=== PATIENT | male | born 1965 | race African-American/Black ===

== ENCOUNTER 2017-02-11 17:29 | Emergency (ER) | payer BC, MEDICAID ==
[~2017-02-11] VITALS: Ht 172.7 cm; Wt 60.0 kg
[2017-02-11] MEDS ORDERED: KETOROLAC 30MG/ML VIAL IV STA (18:06)
[2017-02-11] MEDS ORDERED: SODIUM CHLORIDE 0.9% 1,000 ML IV ONE (18:06)
[2017-02-11 18:24] VITALS: BP 138/87
[2017-02-11 18:55] LABS: BASOPHILS % 1.2 % (0.0-2.0); EOSINOPHILS % 0.1 % (0.0-5.0); HEMATOCRIT. 40.6 % (42.0-52.0); HEMOGLOBIN. 14.3 g/dL (14.0-18.0); LYMPHOCYTES % 14.1 % (20.0-50.0); MEAN CORPUSCULAR HEMOGLOBIN 35.7 pg (28.0-32.0); MEAN CORPUSCULAR VOLUME 101.6 fL (80.0-94.0); MEAN PLATELET VOLUME 8.9 fl (7.4-10.4); MONOCYTES % 7.8 % (2.0-8.0); NEUTROPHILS % 76.8 % (40.0-76.0); PLATELET 139 x1000/uL (130-400); RED CELL DISTRIBUTION WIDTH 14.7 % (11.6-14.6)
[2017-02-11 19:05] LABS: CARBON DIOXIDE 22 mEq/L (21-32); CHLORIDE 100 mEq/L (98-107); ETHANOL BLOOD < 10 mg/dL
[2017-02-11 19:14] LABS: INR 1.1
[2017-02-11] MEDS ORDERED: ONDANSETRON HCL 4MG/2ML VIAL IV STA (19:22)
[2017-02-11] MEDS ORDERED: MORPHINE SULFATE 4 MG/ML CPJ (NOT FOR IM USE) IV STA (19:22)
[2017-02-11] MEDS ORDERED: SODIUM CHLORIDE 0.9% 1,000 ML IV SCH (22:23)
[2017-02-11] MEDS ORDERED: ENOXAPARIN 40MG/0.4ML SYR SUBCUT SCH (22:30)
[2017-02-11] MEDS ORDERED: ONDANSETRON HCL 4MG/2ML VIAL IV PRN (22:30)
[2017-02-11] MEDS ORDERED: MORPHINE SULFATE 2 MG/ML CPJ (NOT FOR IM USE) IV PRN (22:30)
[2017-02-11] MEDS ORDERED: IPRATROPIUM/ALBUTEROL 0.5-3(2.5)MG/3ML NEB INH PRN (22:30)
[2017-02-11] MEDS ORDERED: MVI, ADULT NO.1 10 ML, FOLIC ACID 1 MG, THIAMINE HCL 100 MG in SODIUM CHLORIDE 0.9% 1,0... IV SCH ×4 (23:00)
[2017-02-12] MEDS ORDERED: TRAM50TA3 PO (17:35)
[2017-02-12] MEDS ORDERED: [UNRECOGNIZED DRUG - OTHER] PO (17:35)
== END 2017-02-11 21:40 | disposition left against medical advice (07) ==
LOC: ER 18:08 → CANBEDREQ 21:45
DX: K85.90 Acute pancreatitis without necrosis or infection, unspecified (principal); F41.9 Anxiety disorder, unspecified; F17.210 Nicotine dependence, cigarettes, uncomplicated; Z87.81 Personal history of (healed) traumatic fracture
CPT/HCPCS: 36415; 74176; 80053; 83036; 83690; 85025; 85610; 93005; 96361; 96374; 99285; G0482; J1885; J7030; 80305; 81003; J3411; J3490

== ENCOUNTER 2017-02-12 08:37 | Inpatient (IN) | payer BC, MEDICAID ==
[~2017-02-12] VITALS: Ht 182.9 cm; Wt 74.8 kg
[2017-02-12] MEDS ORDERED: MORPHINE SULFATE 4 MG/ML CPJ (NOT FOR IM USE) IV ONE (11:04)
[2017-02-12] MEDS ORDERED: MORPHINE SULFATE 4 MG/ML CPJ (NOT FOR IM USE) IV STA (11:05)
[2017-02-12] MEDS ORDERED: ONDANSETRON HCL 4MG/2ML VIAL IV STA (11:05)
[2017-02-12] MEDS ORDERED: SODIUM CHLORIDE 0.9% 1,000 ML IV ONE (11:05)
[2017-02-12] MEDS ORDERED: ONDANSETRON HCL 4MG/2ML VIAL ONE (11:06)
[2017-02-12 11:11] LABS: BASOPHILS % 0.7 % (0.0-2.0); EOSINOPHILS % 0.4 % (0.0-5.0); HEMATOCRIT. 38.5 % (42.0-52.0); HEMOGLOBIN. 13.3 g/dL (14.0-18.0); LYMPHOCYTES % 15.3 % (20.0-50.0); MEAN CORPUSCULAR HEMOGLOBIN 35.4 pg (28.0-32.0); MEAN CORPUSCULAR VOLUME 102.3 fL (80.0-94.0); MEAN PLATELET VOLUME 9.1 fl (7.4-10.4); MONOCYTES % 7.7 % (2.0-8.0); NEUTROPHILS % 75.9 % (40.0-76.0); PLATELET 111 x1000/uL (130-400); RED BLOOD CELL COUNT 3.76 mill/uL (4.7-6.1); RED CELL DISTRIBUTION WIDTH 14.7 % (11.6-14.6)
[2017-02-12 11:18] LABS: INR 1.1; PARTIAL THROMBOPLASTIN TIME 28.7 sec (24.0-34.0); PROTHROMBIN TIME 11.4 sec
[2017-02-12 11:21] LABS: AMYLASE 70 IU/L (25-115); CARBON DIOXIDE 22 mEq/L (21-32); CHLORIDE 107 mEq/L (98-107)
[2017-02-12 12:25] LABS: CLARITY URINE TURBID (CLEAR); COLOR URINE ORANGE (YELLOW); GLUCOSE URINE NEGATIVE (NEGATIVE); KETONES URINE NEGATIVE (NEGATIVE); LEUKOCYTE ESTERASE URINE 1+ (NEGATIVE); NITRITE URINE POSITIVE (NEGATIVE); OCCULT BLOOD URINE NEGATIVE (NEGATIVE); PROTEIN URINE 1+ (NEGATIVE); SPECIFIC GRAVITY URINE 1.032 (1.005-1.030)
[2017-02-12] MEDS: FAMOTIDINE 20MG/2ML VIAL IV STA (12:33)
[2017-02-12] MEDS ORDERED: ACETAMINOPHEN 325MG TABLET PO PRN (15:00)
[2017-02-12] MEDS ORDERED: CLONIDINE 0.1MG TABLET PO PRN (15:00)
[2017-02-12] MEDS ORDERED: ONDANSETRON HCL 4MG/2ML VIAL IV PRN (15:00)
[2017-02-12] MEDS ORDERED: IPRATROPIUM/ALBUTEROL 0.5-3(2.5)MG/3ML NEB INH PRN (15:00)
[2017-02-12] MEDS ORDERED: DOCUSATE SODIUM 100MG CAPSULE PO PRN (15:00)
[2017-02-12] MEDS ORDERED: DEXT 5%/0.9% NACL 1,000 ML IV SCH (15:00)
[2017-02-12] MEDS ORDERED: HYDROCODONE/ACETAMINOPHEN 5/325MG TABLET PO PRN (15:00)
[2017-02-12] MEDS ORDERED: MAGNESIUM/ALUMINUM HYDROXIDE/SIMETHICONE 30ML UDC PO PRN (15:00)
[2017-02-12] MEDS: CEFTRIAXONE 1 G PREMIX 50 ML IV ONE (16:05)
[2017-02-12 16:40] LABS: HEPATITIS B SURFACE ANTIGEN NEGATIVE
[2017-02-12 16:50] LABS: PROSTRATE SPECIFIC AG TOTAL 0.54 ng/mL (0.0-4.0)
[2017-02-12 17:00] VITALS: BP 115/81
[2017-02-12 17:08] LABS: HEPATITIS B CORE AB IGM NEGATIVE
[2017-02-12 17:10] LABS: HEPATITIS A AB IGM NEGATIVE (NEGATIVE)
[2017-02-12] MEDS ORDERED: [UNRECOGNIZED DRUG - OTHER] PO (17:35)
[2017-02-12] MEDS ORDERED: TRAM50TA3 PO (17:35)
[2017-02-12 20:00] VITALS: BP 111/86
[2017-02-12] MEDS ORDERED: MVI, ADULT NO.1 10 ML, FOLIC ACID 1 MG, THIAMINE HCL 100 MG in SODIUM CHLORIDE 0.9% 1,0... IV ONE ×4 (20:00)
[2017-02-12] MEDS ORDERED: CEFTRIAXONE 1 G PREMIX 50 ML IV SCH (20:00)
[2017-02-12 21:16] LABS: *AMPHETAMINES SCREEN URINE NEGATIVE (NEGATIVE); *BARBITURATES SCREEN URINE NEGATIVE (NEGATIVE); *BENZODIAZEPINES SCREEN URINE PRESUMTIVE POSITIVE (NEGATIVE); *COCAINE SCREEN URINE NEGATIVE (NEGATIVE); CANNABINOID URINE SCREEN PRESUMTIVE POSITIVE (NEGATIVE); METHADONE URINE SCREEN NEGATIVE (NEGATIVE); OPIATES URINE SCREEN PRESUMTIVE POSITIVE (NEGATIVE); PHENCYCLIDINE URINE SCREEN NEGATIVE (NEGATIVE)
[2017-02-13] MEDS ORDERED: THIAMINE HCL 100MG TABLET PO SCH (09:00)
[2017-02-13] MEDS ORDERED: FOLIC ACID 1MG TABLET PO SCH (09:00)
[2017-02-13] MEDS ORDERED: MULTIVITAMINS,THER W-MINERALS TABLET PO SCH (09:00)
== END 2017-02-12 21:40 | disposition left against medical advice (07) | DRG 689 ==
LOC: ER 09:35 → EDBEDREQ 12:44 → 6EST 13:39 → EDBEDREQ 13:42 → ENRESERV 15:53 → CANBEDREQ 16:14
PROVIDERS: ADMIT Internal Medicine; ATTEND Internal Medicine
DX: N39.0 Urinary tract infection, site not specified (principal); K85.20 Alcohol induced acute pancreatitis without necrosis or infection; D53.9 Nutritional anemia, unspecified; F17.210 Nicotine dependence, cigarettes, uncomplicated; F31.9 Bipolar disorder, unspecified; F10.20 Alcohol dependence, uncomplicated; F41.9 Anxiety disorder, unspecified; D69.6 Thrombocytopenia, unspecified; K70.10 Alcoholic hepatitis without ascites; K70.30 Alcoholic cirrhosis of liver without ascites; N40.0 Benign prostatic hyperplasia without lower urinary tract symptoms; Z90.49 Acquired absence of other specified parts of digestive tract
CPT/HCPCS: 36415; 74022; 76705; 80053; 80305; 81001; 82150; 83690; 84153; 85025; 85610; 85730; 86705; 86709; 86803; 87040; 87086; 87340; 93005; 93970; 96365; 96375; 99285; J0696; J2270; J2405; J3411; J3490; J7030